=== PATIENT | male | born 1980 | race Hispanic/Latino ===

== ENCOUNTER 2024-04-08 20:10 | Emergency (ER) | payer SELFPAY | END 2024-04-08 21:10 | LOC: EEVIPCON 20:10 → ERS 20:10 | DX: S40.812A Abrasion of left upper arm, initial encounter (principal); I10 Essential (primary) hypertension; E11.9 Type 2 diabetes mellitus without complications; V89.2XXA Person injured in unspecified motor-vehicle accident, traffic, initial encounter | CPT/HCPCS: 99283 ==